=== PATIENT | female | born 1955 | race Caucasian/White ===

== ENCOUNTER 2018-07-02 02:05 | Emergency (ER) | payer BC, OTHER ==
[~2018-07-02] VITALS: Ht 160 cm; Wt 67.1 kg
[2018-07-02] MEDS ORDERED: ASPIRIN 81 MG CHEW (CHILDREN'S ASA) PO ONE (02:30)
[2018-07-02] MEDS ORDERED: NITROGLYCERIN 0.4 MG SL TABS BTL 25'S SL PRN (02:30)
--- NOTE | 2018-07-02 02:37 | ED Chest Pain ---
General Chief Complaint: Chest Pain Stated Complaint: CP Nursing Triage Note: CHEST PAIN STARTING AT 1AM. RADIATING TO BACK. WORSE WHEN TAKING DEEP BREATHS. Nursing Sepsis Screen: No Definite Risk Source: patient, spouse Exam Limitations: no limitations History of Present Illness Date Seen by Provider: Jul 02, 2018 Time Seen by Provider: 02:10 Initial Comments Patient presents to ER with her significant other and chief complaint of being woke up around 1:00 this morning to some burning indigestion chest pain. She took some Tums but it did not help. She has no prior history of coronary disease. The pain radiates to her back and around her left shoulder. She is not having any sweats or nausea. She has no history of stroke or heart attack. No family history of early onset cardiac disease. She does not smoke cigarettes or have diabetes, hypothyroidism or hypercholesterolemia. She does have high blood pressure. No cough, shortness of breath, hemoptysis, history of periods of immobilization recently. Allergies and Home Medications Allergies Coded Allergies: No Known Drug Allergies (Unverified , 07/02/18) Patient Home Medication List Home Medication List Reviewed: Yes Review of Systems Review of Systems Constitutional: No chills, No diaphoresis EENTM: No Blurred Vision, No Double Vision Respiratory: Denies Cough, Denies Shortness of Air Cardiovascular: See HPI, Chest Pain; Denies Edema, Denies Irregular Heart Rate , Denies Lightheadedness, Denies Palpitations, Denies Syncope Gastrointestinal: Denies Abdominal Pain, Denies Constipated, Denies Diarrhea, Denies Nausea Genitourinary: Denies Burning, Denies Discharge Musculoskeletal: No back pain, No joint pain Skin: No change in color, No change in hair/nails Psychiatric/Neurological: Denies Anxiety, Denies Depressed Past [id number]-[id number]-Lsdfev Hx Patient Social History Alcohol Use: Occasionally Uses Alcohol Beverage of Choice: Rum Recreational Drug Use: No Smoking Status: Never a Smoker Recent Foreign Travel: No Contact w/Someone Who Travel: No Recent Infectious Disease Expo: No Physical Abuse: No Sexual Abuse: No Past Medical History Nursing Suicide Risk Score: 0 Physical Exam Vital Signs Vital Signs - First Documented 07/02/18 07/02/18 02:10 03:14 Temp 97.8 Pulse 58 Resp 14 B/P (MAP) 162/107 (125) Pulse Ox 100 O2 Delivery Room Air Capillary Refill : Less Than 3 Seconds Height, Weight, BMI Height: 5'3.00" Weight: 148lbs. oz. 67.409695wd; BMI Method:Stated General Appearance: No Apparent Distress, WD/WN HEENT: PERRL/EOMI, TMs Normal, Normal ENT Inspection, Pharynx Normal, Moist Mucous Membranes Neck: Full Range of Motion, Normal Inspection, Non Tender, Supple Respiratory: Chest Non Tender, Lungs Clear, Normal Breath Sounds, No Accessory Muscle Use, No Respiratory Distress Cardiovascular: Regular Rate, Rhythm, No Edema, No Gallop, No JVD, Normal Peripheral Pulses Gastrointestinal: Normal Bowel Sounds, No Organomegaly, Non Tender, Soft Neurologic/Psychiatric: Alert, Oriented x3 Skin: Normal Color, Warm/Dry Progress/Results/Core Measures Results/Orders Lab Results Laboratory Tests Test 07/02/18 03:00 Range/Units White Blood Count 4.4 4.3-11.0 10^3/uL Red Blood Count 4.61 4.35-5.85 10^6/uL Hemoglobin 14.4 11.5-16.0 G/DL Hematocrit 41 35-52 % Mean Corpuscular Volume 89 80-99 FL Mean Corpuscular Hemoglobin 31 25-34 PG Mean Corpuscular Hemoglobin Concent 35 32-36 G/DL Red Cell Distribution Width 13.0 10.0-14.5 % Platelet Count 152 130-400 10^3/uL Mean Platelet Volume 10.5 H 7.4-10.4 FL Neutrophils (%) (Auto) 49 42-75 % Lymphocytes (%) (Auto) 35 12-44 % Monocytes (%) (Auto) 10 0-12 % Eosinophils (%) (Auto) 6 0-10 % Basophils (%) (Auto) 1 0-10 % Neutrophils # (Auto) 2.1 1.8-7.8 X 10^3 Lymphocytes # (Auto) 1.5 1.0-4.0 X 10^3 Monocytes # (Auto) 0.4 0.0-1.0 X 10^3 Eosinophils # (Auto) 0.2 0.0-0.3 10^3/uL Basophils # (Auto) 0.0 0.0-0.1 10^3/uL Prothrombin Time 12.8 12.2-14.7 SEC INR Comment 1.0 0.8-1.4 Activated Partial Thromboplast Time 29 24-35 SEC Sodium Level 141 135-145 MMOL/L Potassium Level 3.4 L 3.6-5.0 MMOL/L Chloride Level 108 H 98-107 MMOL/L Carbon Dioxide Level 21 21-32 MMOL/L Anion Gap 12 5-14 MMOL/L Blood Urea Nitrogen 27 H 7-18 MG/DL Creatinine 0.73 0.60-1.30 MG/DL Estimat Glomerular Filtration Rate > 60 BUN/Creatinine Ratio 37 Glucose Level 75 70-105 MG/DL Calcium Level 9.6 8.5-10.1 MG/DL Corrected Calcium 9.6 8.5-10.1 MG/DL Magnesium Level 2.3 1.8-2.4 MG/DL Total Bilirubin 0.3 0.1-1.0 MG/DL Aspartate Amino Transf (AST/SGOT) 19 5-34 U/L Alanine Aminotransferase (ALT/SGPT) 19 0-55 U/L Alkaline Phosphatase 80 40-136 U/L Myoglobin 36.6 10.0-92.0 NG/ML Troponin I < 0.30 <0.30 NG/ML Total Protein 6.2 L 6.4-8.2 GM/DL Albumin 4.0 3.2-4.5 GM/DL My Orders Orders - KEVIN,PAULIE J Cbc With Automated Diff (07/02/18 02:22) Magnesium (07/02/18 02:22) Chest 1 View, Ap/Pa Only (07/02/18 02:22) Ekg Tracing (07/02/18 02:22) Cardiac Profile 1 (07/02/18 02:22) Comprehensive Metabolic Panel (07/02/18 02:22) Myoglobin Serum (07/02/18 02:22) Protime With Inr (07/02/18 02:22) Partial Thromboplastin Time (07/02/18 02:22) O2 (07/02/18 02:22) Monitor-Rhythm Ecg Trace Only (07/02/18 02:22) Lipid Panel (07/03/18 06:00) Aspirin Chewable Tablet (Baby Aspirin Ch (07/02/18 02:30) Nitroglycerin 0.4 Mg Btl 25's (Nitrostat (07/02/18 02:30) Saline Lock/Iv-Start (07/02/18 02:22) Lidocaine 2% Viscous 15 Ml (Xylocaine Vi (07/02/18 03:15) Famotidine Tablet (Pepcid Tablet) (07/02/18 03:12) Antacid Suspension (Mylanta Suspension (07/02/18 03:15) Medications Given in ED Current Medications Medications Dose Ordered Sig/Pasquale Route Start Time Stop Time Status Last Admin Dose Admin Al Hydrox/Mg Hydrox/Simethicone 30 ml ONCE ONCE PO 07/02/18 03:15 07/02/18 03:19 DC 07/02/18 03:25 30 ML Aspirin 324 mg ONCE ONCE PO 07/02/18 02:30 07/02/18 02:31 DC 07/02/18 02:29 324 MG Lidocaine HCl 15 ml ONCE ONCE PO 07/02/18 03:15 07/02/18 03:19 DC 07/02/18 03:25 15 ML Nitroglycerin 0.4 mg UD PRN SL 07/02/18 02:30 07/02/18 02:29 0.4 MG Vital Signs/I&O 07/02/18 07/02/18 02:10 03:14 Temp 97.8 Pulse 58 Resp 14 B/P (MAP) 162/107 (125) Pulse Ox 100 O2 Delivery Room Air Blood Pressure Mean: 125 Progress Progress Note : Time: 02:34 Progress Note We'll start with some aspirin and nitroglycerin. If that is not helpful try GI cocktail. Her first EKG has some motion artifact but does not demonstrate any ST elevation or depression. Does not seem to be any pulmonary involvement. She does not have any risk factors for pulmonary embolism nor she having any shortness of breath, hypoxia, hemoptysis or cough. Initial ECG Impression Date: Jul 02, 2018 Initial ECG Impression Time: 02:16 Initial ECG Rate: 56 Initial ECG Rhythm: Normal Sinus Initial ECG Intervals: Normal Initial ECG Impression: Normal Initial ECG Comparisson: No Previous ECG Available Comment No ST elevation or depression mild motion artifact. Diagnostic Imaging Diagonstic Imaging: Xray Plain Films/CT/US/NM/MRI: chest (1v) Comments No widened mediastinum, cardiomegaly or other acute cardiopulmonary processes noted on one view chest x-ray. Reviewed: Reviewed by Me Departure Impression Primary Impression: Gastroesophageal reflux disease Qualified Codes: K21.9 - Gastro-esophageal reflux disease without esophagitis Additional Impression: Chest pain Qualified Codes: R07.9 - Chest pain, unspecified Disposition: 01 HOME, SELF-CARE Condition: Improved Departure-Patient Inst. Decision time for Depature: 04:44 Referrals: REY DESIR MD [facility] NO,LOCAL PHYSICIAN (PCP) Primary Care Physician Patient Instructions: Chest Pain That Is Not Caused by the Heart (DC) Add. 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 If your pain comes back or changes or doesn't respond to the antacids or any other worrisome symptoms such as shortness of breath then you should return to the nearest ER immediately. Wednesday please call Dr. Desir's office and request an appointment for further characterization of your chest pain to make sure there is no other concerning cardiac features in the clinic. All discharge instructions reviewed with patient and/or family. Voiced understanding. Copy Copies To 1: REY DESIR MD [facility] PAULIE BROWN Jul 02, 2018 02:37
[2018-07-02] MEDS ORDERED: FAMOTIDINE 20 MG (PEPCID) TABLET PO STA (03:12)
[2018-07-02] MEDS ORDERED: LIDOCAINE 2% VISCOUS 15 ML UDC PO ONE (03:15)
[2018-07-02] MEDS ORDERED: ANTACID SUSP 30 ML UDC (MYLANTA) PO ONE (03:15)
[2018-07-02 03:42] LABS: BASOPHILS % (AUTO) 1 % (0-10); EOSINOPHILS # (AUTO) 0.2 10^3/uL (0.0-0.3); EOSINOPHILS % (AUTO) 6 % (0-10); HEMATOCRIT 41 % (35-52); HEMOGLOBIN 14.4 G/DL (11.5-16.0); LYMPHOCYTES # (AUTO) 1.5 X 10^3 (1.0-4.0); LYMPHOCYTES % (AUTO) 35 % (12-44); MEAN CORPUSCULAR HEMOGLOBIN 31 PG (25-34); MEAN CORPUSCULAR HGB CONC 35 G/DL (32-36); MEAN CORPUSCULAR VOLUME 89 FL (80-99); MEAN PLATELET VOLUME 10.5 FL (7.4-10.4); MONOCYTES # (AUTO) 0.4 X 10^3 (0.0-1.0); MONOCYTES % (AUTO) 10 % (0-12); NEUTROPHILS # (AUTO) 2.1 X 10^3 (1.8-7.8); NEUTROPHILS % (AUTO) 49 % (42-75); PLATELET COUNT 152 10^3/uL (130-400); RED BLOOD COUNT 4.61 10^6/uL (4.35-5.85); WHITE BLOOD COUNT 4.4 10^3/uL (4.3-11.0)
[2018-07-02 04:09] LABS: PROTHROMBIN TIME PATIENT 12.8 SEC (12.2-14.7)
[2018-07-02 04:20] LABS: ALANINE AMINOTRANSFERASE 19 U/L (0-55); ALKALINE PHOSPHATASE 80 U/L (40-136); BILIRUBIN,TOTAL 0.3 MG/DL (0.1-1.0); BUN/CREATININE RATIO 37; CALCIUM 9.6 MG/DL (8.5-10.1); CARBON DIOXIDE 21 MMOL/L (21-32); CHLORIDE 108 MMOL/L (98-107); CREATININE SERUM 0.73 MG/DL (0.60-1.30); GFR ESTIMATED > 60; GLUCOSE 75 MG/DL (70-105); MAGNESIUM 2.3 MG/DL (1.8-2.4); POTASSIUM 3.4 MMOL/L (3.6-5.0); SODIUM 141 MMOL/L (135-145); TOTAL PROTEIN 6.2 GM/DL (6.4-8.2)
[2018-07-02 04:29] LABS: MYOGLOBIN SERUM 36.6 NG/ML (10.0-92.0)
[2018-07-02 04:48] VITALS: BP 100/80
--- NOTE | 2018-07-02 08:01 | Diagnostic Imaging Report ---
INDICATION: Chest pain. COMPARISON: None available. TECHNIQUE: Single frontal radiograph of the chest dated 07/02/2018. FINDINGS: The cardiac silhouette and pulmonary vasculature are within normal limits. Minimal opacities within the medial right lung base. Otherwise, the lungs appear clear. No pleural effusion. No pneumothorax. No acute osseous abnormality. IMPRESSION: Minimal right basilar atelectasis and/or pneumonitis. Dictated by: Dictated on workstation # [id number]
== END 2018-07-02 04:48 | disposition home or self-care (01) ==
LOC: ER 02:08
DX: K21.9 Gastro-esophageal reflux disease without esophagitis (principal); R07.89 Other chest pain
CPT/HCPCS: 36415; 71045; 80053; 83735; 83874; 84484; 85025; 85610; 85730; 93005; 93041

== ENCOUNTER 2019-04-23 11:54 | Emergency (ER) | payer BC | END 2019-04-23 13:35 | disposition home or self-care (01) | LOC: ER 11:54 ==